=== PATIENT | female | born 1990 | race Caucasian/White ===

== ENCOUNTER 2019-01-14 11:33 | Inpatient (IN) | payer OTHER, MEDICAID ==
[2019-01-14 12:16] LABS: ADD MAN DIFF? NO; BASOPHIL # 0.1 10^3/ul (0.0-0.1); BASOPHILS % 0.5 % (0.0-2.0); EOSINOPHILS # 0.1 10^3/ul (0.0-0.5); EOSINOPHILS % 0.5 % (0.0-7.0); HEMATOCRIT 36.8 % (37.0-47.0); HEMOGLOBIN 12.1 g/dl (12.0-16.0); LYMPHOCYTES # 2.3 10^3/ul (0.8-2.9); LYMPHOCYTES % 22.8 % (15.0-51.0); MEAN CORPUSCULAR HGB CONC 32.9 g/dl (32.0-37.0); MEAN CORPUSCULAR VOLUME 91.1 fl (82.0-101.0); MEAN PLATELET VOLUME 9.9 fl (7.4-10.4); MONOCYTE # 0.5 10^3/ul (0.3-0.9); NEUTROPHILS % 70.4 % (39.0-77.0); PLATELET COUNT 302 10^3/UL (140-415); RED BLOOD COUNT 4.04 10^6/ul (4.20-5.40); RED CELL DISTRIBUTION WIDTH 13.3 % (11.5-14.5)
[2019-01-14 12:34] LABS: ALANINE AMINOTRANSFERASE 21 IU/L (13-69); ALBUMIN 3.9 g/dl (3.3-4.9); ALBUMIN/GLOBULIN RATIO 1.11; ALKALINE PHOSPHATASE 89 IU/L (42-121); ANION GAP 7 (5-13); ASPARTATE AMINO TRANSFERASE 21 IU/L (15-46); BILIRUBIN,INDIRECT 0.2 mg/dl (0-1.1); BILIRUBIN,TOTAL 0.2 mg/dl (0.2-1.3); BLOOD UREA NITROGEN 12 mg/dl (7-20); CALCIUM 9.7 mg/dl (8.4-10.2); CARBON DIOXIDE 21 mmol/L (21-31); CHLORIDE 108 mmol/L (97-110); Estimated GFR > 60 mL/min (>60); GLUCOSE 103 mg/dl (70-220); SODIUM 136 mmol/L (135-144); TOTAL PROTEIN 7.4 g/dl (6.1-8.1); URIC ACID 3.3 mg/dl (3.1-7.9)
[2019-01-14 13:32] LABS: ADD UMIC YES; UR ASCORBIC ACID NEGATIVE (NEGATIVE); UR BACTERIA FEW /HPF (NONE SEEN); UR BILIRUBIN (Dip) NEGATIVE (NEGATIVE); UR BLOOD (Dip) 1+ mg/dL (NEGATIVE); UR CLARITY CLEAR (CLEAR); UR COLOR YELLOW (YELLOW); UR GLUCOSE (Dip) NEGATIVE (NEGATIVE); UR KETONES (Dip) NEGATIVE (NEGATIVE); UR LEUKOCYTE ESTERASE (Dip) NEGATIVE Leu/ul (NEGATIVE); UR NITRITE (Dip) NEGATIVE (NEGATIVE); UR RBC 0 /HPF (0-5); UR SPECIFIC GRAVITY (Dip) 1.008 (1.003-1.030); UR SQUAMOUS EPITHELIAL CELL FEW /HPF (FEW); UR TOTAL PROTEIN (Dip) NEGATIVE (NEGATIVE); UR UROBILINOGEN (Dip) NEGATIVE (NEGATIVE); UR WBC 1 /HPF (0-5)
[2019-01-14 13:43] LABS: RUPTURE FETAL MEMBRANES NEGATIVE (NEGATIVE)
[2019-01-14] MEDS: ACETAMINOPHEN 500 MG TAB PO (14:37)
[2019-01-14] MEDS: LACTATED RINGER'S 1,000 ML IV ×2 (16:21→18:51)
[2019-01-15] MEDS: LACTATED RINGER'S 1,000 ML IV ×3 (03:03→21:06)
[2019-01-15] MEDS: LABETALOL 100 MG TAB PO (09:04)
[2019-01-16] MEDS: LACTATED RINGER'S 1,000 ML IV (07:18)
[2019-01-16] MEDS: LABETALOL 100 MG TAB PO (08:49)
== END 2019-01-16 13:10 | disposition home or self-care (01) | DRG 833 ==
LOC: OBT 11:33 → L-D 01-15 02:58 → OBT 15:10 → L-D 15:10
DX: O41.03X0 Oligohydramnios, third trimester, not applicable or unspecified (principal); Z3A.32 32 weeks gestation of pregnancy
CPT/HCPCS: 76815; 76817; 76818; 80053; 81001; 84112; 84560; 85025

== ENCOUNTER 2019-01-18 10:13 | Inpatient (IN) | payer OTHER ==
[2019-01-18] MEDS: LACTATED RINGER'S 1,000 ML IV ×2 (12:00→17:58)
[2019-01-19] MEDS: LACTATED RINGER'S 1,000 ML IV ×2 (00:38→18:35)
[2019-01-19 01:02] LABS: MAGNESIUM 1.8 mg/dl (1.7-2.5)
[2019-01-19] MEDS: LABETALOL 100 MG TAB PO (08:45)
[2019-01-20] MEDS: LACTATED RINGER'S 1,000 ML IV (01:57)
[2019-01-20] MEDS: LABETALOL 100 MG TAB PO (10:12)
== END 2019-01-20 21:16 | disposition home or self-care (01) | DRG 832 ==
LOC: OBT 10:13 → L-D 10:13 → OBT 11:35 → L-D 11:35
PROVIDERS: Obstetrics & Gynecology
DX: O41.03X0 Oligohydramnios, third trimester, not applicable or unspecified (principal); O10.013 Pre-existing essential hypertension complicating pregnancy, third trimester; Z3A.34 34 weeks gestation of pregnancy; O34.219 Maternal care for unspecified type scar from previous cesarean delivery
CPT/HCPCS: 76816; 76818; 83735

== ENCOUNTER 2019-01-24 11:52 | Inpatient (IN) | payer OTHER ==
[2019-01-24] MEDS: LACTATED RINGER'S 1,000 ML IV ×2 (15:56→23:36)
[2019-01-25] MEDS: LACTATED RINGER'S 1,000 ML IV ×2 (07:19→16:35)
[2019-01-25] MEDS: LABETALOL 100 MG TAB PO (08:45)
[2019-01-26] MEDS: LACTATED RINGER'S 1,000 ML IV ×4 (00:41→17:10)
[2019-01-26] MEDS: LABETALOL 100 MG TAB PO (08:38)
[2019-01-26] MEDS ORDERED: MISOPROSTOL 200 MCG TAB PR ×2 (13:30→22:30)
[2019-01-26] MEDS ORDERED: CARBOPROST 250 MCG INJ IM ×2 (13:30→22:30)
[2019-01-26] MEDS ORDERED: OXYTOCIN 30 UNITS/LR 500 ML IV ×2 (13:30→22:30)
[2019-01-26] MEDS ORDERED: METHYLERGONOVINE 0.2 MG INJ IM (13:30)
[2019-01-26] MEDS ORDERED: CEFAZOLIN 2 GM/50 ML (PMX) 50 ML IVPB (13:30)
[2019-01-26] MEDS ORDERED: OXYTOCIN 30 UNITS/LR 500 ML BAG IV (17:50)
[2019-01-26] MEDS ORDERED: ONDANSETRON 4 MG INJ (17:51)
[2019-01-26] MEDS ORDERED: morphine SULFATE/PF (10 MG/10 ML) INJ (17:51)
[2019-01-26] MEDS ORDERED: OXYTOCIN 10 UNIT INJ ×2 (17:51)
[2019-01-26] MEDS ORDERED: NALOXONE (0.4 MG/ML) INJ IV (22:00)
[2019-01-26] MEDS ORDERED: DIPHENHYDRAMINE 50 MG INJ IV (22:00)
[2019-01-26] MEDS ORDERED: morphine 2 MG INJ IV (22:00)
[2019-01-26] MEDS ORDERED: ONDANSETRON 4 MG INJ IV (22:00)
[2019-01-26] MEDS: OXYTOCIN 30 UNITS/LR 500 ML IV (23:53)
[2019-01-27] MEDS: LANOLIN HPA 1 PKT TOP (08:25)
[2019-01-27] MEDS: SENNA/DOCUSATE NA (8.6MG/50MG) TAB PO ×2 (08:27→21:00)
[2019-01-27] MEDS: KETOROLAC 30 MG INJ IV ×2 (08:27→15:10)
[2019-01-27] MEDS: LACTATED RINGER'S 1,000 ML IV (10:56)
[2019-01-27] MEDS ORDERED: OXYCODONE/ACETAMINOPHEN (5/325) TAB PO (18:00)
[2019-01-27] MEDS: OXYCODONE/ACETAMINOPHEN (5/325) TAB PO (21:01)
[2019-01-27] MEDS: IBUPROFEN 800 MG TAB PO (23:38)
[2019-01-28] MEDS: IBUPROFEN 800 MG TAB PO ×3 (05:32→21:35)
[2019-01-28] MEDS: SENNA/DOCUSATE NA (8.6MG/50MG) TAB PO ×2 (10:08→21:35)
[2019-01-29] MEDS: OXYCODONE/ACETAMINOPHEN (5/325) TAB PO (04:19)
[2019-01-29] MEDS: IBUPROFEN 800 MG TAB PO ×2 (05:43→13:07)
[2019-01-29] MEDS: SENNA/DOCUSATE NA (8.6MG/50MG) TAB PO (08:39)
[2019-01-29] MEDS: DIPHTH/TET/ACEL PERTUSS (ADULT) 0.5 ML VIAL IM* (09:51)
== END 2019-01-29 18:00 | disposition home or self-care (01) | DRG 784 ==
LOC: OBT 11:52 → L-D 11:52 → OBT 14:00 → L-D 14:00 → PP1 15:09 → L-D 01-26 17:20 → MS1 01-26 22:20
PROC: 10D00Z1 Extraction of Products of Conception, Low, Open Approach (ICD-10-PCS; principal; 2019-01-26 17:30)
PROC: 0UT70ZZ Resection of Bilateral Fallopian Tubes, Open Approach (ICD-10-PCS; 2019-01-26 17:30)
PROC: 10907ZC Drainage of Amniotic Fluid, Therapeutic from Products of Conception, Via Natural or Artificial Opening (ICD-10-PCS; 2019-01-26 17:30)
DX: O34.211 Maternal care for low transverse scar from previous cesarean delivery (principal); O41.03X0 Oligohydramnios, third trimester, not applicable or unspecified; O11.4 Pre-existing hypertension with pre-eclampsia, complicating childbirth; Z37.0 Single live birth; Z3A.34 34 weeks gestation of pregnancy
CPT/HCPCS: 76815; 76818; 80053; 81001; 82575; 84156; 84560; 85025; 85610; 85730; 86592; 86850; 86900; 86901; 87340; 88302; 88307; 90715